=== PATIENT | female | born 1970 | race Caucasian/White ===

== ENCOUNTER 2022-04-13 19:51 | Emergency (ER) | payer BC, SELFPAY ==
[2022-04-13 19:51] VITALS: BP 169/104; PULSE 78; RESP 16; TEMP 36.5; O2SAT 99; BMI 33.6
--- NOTE | 2022-04-13 21:07 | EDS_ITS ---
HPI History of Present Illness Chief Complaint: Rash Informant: patient Onset/Context/Timing Onset: Yesterday Context: Gradual Onset Timing: Continuous Quality: Erythematous Location: Bilateral upper extremities, feet, chest, neck Worsened by: Nothing Relieved by: Nothing Narrative Narrative: Patient presents with a rash that began yesterday. Patient states it has been constant but waxing and waning. Patient states that started in both arms and both feet. Patient states she also noted on her chest and neck today. Patient denies any new soaps, shampoos, laundry detergents, fabric softeners, or foods. Patient states that it is mildly pruritic. Patient states nothing makes it worse and nothing makes it better. Patient states she also has some gastroesophageal reflux symptoms. Patient states she has been taking omeprazole for this with minimal relief. Patient admits to nausea but denies any vomiting. Patient admits to some diarrhea. PFSH PFSH Medical History no medical history no medical history Home Medications pantoprazole 40 mg tablet,delayed release 40 mg PO DAILY #10 tabs 04/13/22 [Rx Last Taken Unknown] Allergy/AdvReac Type Severity Reaction Status Date / Time ciprofloxacin [From Cipro] Allergy Angioedema Verified 04/13/22 19:53 ciprofloxacin HCl Allergy Angioedema Verified 04/13/22 19:53 [From Cipro] Surgical History (Updated 04/13/22 @ 21:[address] Félix Madrigal DO) H/O section Status post surgical removal of malignant neoplasm of skin Social History Smoking Status: Current every day smoker tobacco type: cigarettes ROS ROS ED Constitutional Constitutional ED: Reports fever(s) and subjective; Denies chills Eyes Eyes: Denies blurry vision or change in vision ENT ENT ED: Reports rhinorrhea; Denies sore throat Cardiovascular Cardiovascular: Reports chest pain; Denies palpitations Respiratory/Chest Respiratory/Chest: Denies cough or dyspnea Gastrointestinal Gastrointestinal: Reports diarrhea and nausea; Denies vomiting Genitourinary Genitourinary ED: Denies dysuria or hematuria Musculoskeletal Musculoskeletal: Denies back pain or neck pain Integumentary Reports rash; Denies abscess Neurologic Neurologic: Reports headache(s); Denies weakness Allergic/Immunologic Allergic/Immunologic ED: Denies mouth swelling or urticaria EXAM Physical Exam Const Vital Signs: 04/13/22 19:51 Temperature 97.7 F L Temperature Source Temporal Pulse Rate 78 Respiratory Rate 16 Blood Pressure 169/104 H Blood Pressure Mean 125 Pulse Ox 99 Oxygen Delivery Method Room Air Positive well nourished, well developed and obese General Appearance ED: well developed and NAD Nutritional Appearance: obese HEENT Reports moist mucous membranes Neck supple and no JVD Resp normal respiratory effort and clear to auscultation bilaterally Cardio regular rate and regular rhythm GI normal to inspection, nondistended, normoactive bowel sounds and non-tender Extremity normal to inspection Neuro oriented x3, CN's II-XII intact bilaterally and no sensory deficits noted Sensorium / Orientation: alert Motor Exam: strength 5/5 throughout Psych mental status grossly normal Skin Skin Narrative: There is a generalized papular rash over the upper extremities bilaterally, lower legs and feet bilaterally, chest, and anterior neck. There is no involvement of the mucous membranes. There are no petechia. There is no i nvolvement of the palms or soles. There is no bleeding. There are no vesicles or pustules. MDM MDM MDM Narrative Medical decision making narrative: Patient was advised that this may be a viral exanthem from a viral upper respiratory infection. Patient was instructed to use Benadryl or Zyrtec as needed for itching. Patient was given a prescription for pantoprazole to take instead of her omeprazole. Patient was instructed to follow-up with her primary care physician in 5 to 7 days. Patient understood and was agreeable with the plan. All questions were answered. Discharge Plan Triage Chief Complaint: Rash ED Provider: Félix Madrigal Dx/Rx/DC Orders Clinical Impression: Rash, GERD (gastroesophageal reflux disease) Instructions: ED GERD (Adult), ED Viral Rash, Exanthem (Child) Prescriptions: New pantoprazole 40 mg tablet,delayed release (DR/EC) 40 mg PO DAILY Qty: 10 0RF Primary Care Provider: Riley Hutchison Referrals: Riley Hutchison DO [Primary Care Provider] - 3-5 Days Disposition Disposition: Home, Self Care
[2022-04-13] MEDS: Pantoprazole Sodium 40 MG Tablet PO (21:39)
== END 2022-04-13 21:40 | disposition home or self-care (01) ==
PROVIDERS: Emergency Provider Emergency Medicine; PCP Student in an Organized Health Care Education/Training Program; Visit Provider Emergency Medicine
DX: R21 Rash and other nonspecific skin eruption (principal); K21.9 Gastro-esophageal reflux disease without esophagitis; E66.9 Obesity, unspecified; F17.210 Nicotine dependence, cigarettes, uncomplicated; Z68.33 Body mass index [BMI] 33.0-33.9, adult; Z79.899 Other long term (current) drug therapy
CPT/HCPCS: 99281; 99283

== ENCOUNTER 2023-01-13 09:00 | Outpatient (RCR) | payer OTHER, BC, SELFPAY ==
--- NOTE | 2022-10-11 11:52 | OTREVAL_ITS ---
MINAL GERMAIN, It has been my pleasure to treat SHEMAR POLANCO over the last 2 visits for right hand crush injury. Please see the progress note below for an update on the occupational therapy plan of care! Subjective: pt karena did not bring splint with her so we can add finger section to keep her from fisting at night Objective/Function: PIP flexion with FES of MF 85 and RF 90 Plan Frequency: 2-3x /Week Duration: 2 Months Visits in this POC: 36 Goals - Goals Patient Goals: Regain Mobility, Decrease Pain, Return to Work, Use Hand/Wrist/Arm Normally Again Goal:Daily scar massage when approriate: Yes Goal:ROM equal to unaffected hand: Yes Goal:Collaborative Physician/Pinch strength at least 75% of unaffected hand: Yes Goal:PIP Circumferences equal to unaffected hand: Yes Goal:Full use of affected hand in daily activities including: Yes Goal:Decrease scar hypersensitivity: Yes Anticipated Interventions Anticipated Interventions: A/AAROM/PROM, Strengthening, Edema Control, Scar Care, Triggerpoint Release, Sensory Retraining, Modalities, Orthoses, Ergonomic Education, Fine Motor Coord/Lazaro, Neuro Reeducation, Sensory Stimulation, Education re assistive Equipment, Education re Diagnosis, Caregiver Training, Home Program Please do not hesitate to contact me at [phone] by phone or if you have questions or concerns regarding this new plan of care! Sincerely, Nola Castle OTR/L, CHT
--- NOTE | 2022-10-11 11:53 | HP.OTEVAL ---
Patient's Visit Information SHEMAR POLANCO is a 52 year old F, referred to Occupational Therapy by MINAL GERMAIN, with a diagnosis of right hand crush injury. Date of Evaluation: 10/08/22 Occupational Therapist: Nola Castle, CHRISTY/BRINA Taylor - Subjective This 52 year old female was referred to OT with dx of right hand crush injury with palmar transvers laceration. right 4th, 5th Carpometacarpal volar dislocation- and right 3rd carpometacarpal dorsal dislocation with right transvers metacarpal instability 3-5th. pts DOI was 08/10/22 with sx on 08/11/22. pt is currently 8 weeks and 2 days s/p: Repair of blood vessel, percutaneous skeletal fixation of carpometacarpal dislocation with 3td joint percutaneous skeletal fixation of carpometacarpal dislocation w/ Manip 4th joint percutaneous skeletal fixation of carpometacarpal disloc w/manip 5th joint decompression of median nerve at CT. pt arrives to this CHRISTY/ERI TaylorT after receiving 6 OT sessions with Bryan HARRISON/BRINA Taylor. pt was tsf to this facility due to distance travel to [place]. pt admits she is anxious about her hand and functional use of it- she is left hand dominate and states she is trying to use her right hand with some of her daily tasks as bathing/dressing. pt states she did use it to help fold laundry yesterday. pt states soreness and stiffness limits her ability to use her hand. - Pain right hand 4 Pain Intensity Range: 2, 6 - ROM Wrist: right 25/30 left 60/70 CMC: right +10 MP: right 40 IP: right 40 Radial Abduction: right 45 Palmar Abduction: right 30 min Opposition: Kapandji opposition scale right 4 left 10 MP: Right IF 20/45 MF 20/50 RF 0/25 LF +25/10 PIP: right IF -40/80 MF -50/80 RF -55/90 LF -55/80 DIP: right IF -20/50 MF -35/50 RF -40/40 LF -30/30 ROM Comments: Right UD N RD 15. left UD 30 RD 20 - Strength Strength Comments: will test later date - Sensation Thumb: right 2.83 normal Index: right 3.61 diminished Middle: right 3.61 diminished Ring: right 4.31 diminished protective sensation Little: right 6.65 absent Sensation Comments: light touch impaired more on ulnar nerve LF distribution - Quick DASH-Disab of Arm,Shoulder& Hand Quick DASH Score: 85.0000 - Goals Goal:Daily scar massage when approriate: Yes Goal:ROM equal to unaffected hand: Yes Goal:Substance Addiction Coordinator/Pinch strength at least 75% of unaffected hand: Yes Goal:PIP Circumferences equal to unaffected hand: Yes Goal:Full use of affected hand in daily activities including: Yes Goal:Decrease scar hypersensitivity: Yes - Rehabilitation General Assessment: This 52 year old female is currently 8 weeks and 2 days from fx Repair of blood vessel, percutaneous skeletal fixation of carpometacarpal dislocation with 3td joint percutaneous skeletal fixation of carpometacarpal dislocation w/ Manip 4th joint percutaneous skeletal fixation of carpometacarpal disloc w/manip 5th joint decompression of median nerve at CT. pt arrives to this OTR/Claudia,CHT after receiving 6 OT sessions with Bryan Arreaga OTCaryn/BRINA Taylor. pt was tsf to this facility due to distance travel to [place]. pt continues to demo with limited wrist/finger and thumb ROM, pain and decreased ability to use right hand with ADLs and IADLs. pt would benefit form skilled OT services 2-3x week for 8 weeks to increase pts functional ROM and transition to strengthening when able. pt demo understanding and agrees to POC. Rehabilitation Potential: Good - Anticipated Interventions A/AAROM/PROM, Strengthening, Edema Control, Scar Care, Triggerpoint Release, Sensory Retraining, Modalities, Orthoses, Ergonomic Education, Fine Motor Coord/Lazaro, Neuro Reeducation, Sensory Stimulation, Education re assistive Equipment, Education re Diagnosis, Caregiver Training, Home Program - Visit Plan Frequency: 2-3x /Week Duration: 2 Months TEXT: Thank you for the opportunity to evaluate your patient. For Medicare and Medicare HMO plans, please review the plan of care and approve it. It will need to be FAXED BACK to us at [phone] for Medicare purposes. Please let me know if there are questions or concerns regarding this plan of care. Physician Signature: Date:
--- NOTE | 2022-10-21 10:27 | OTREVAL_ITS ---
MINAL GERMAIN, It has been my pleasure to treat SHEMAR POLANCO over the last 5 visits for right hand crush injury. Please see the progress note below for an update on the occupational therapy plan of care! Subjective: pt arrives to session 10 weeks from right crush injury with multiple trauma -. pt states she was able to carry 1/2 gallon of milk in from the car. trying to do more with it as I can tolerate. Objective/Function: - ROM. Wrist: at initial eval right 25/30 current 45/50. CMC:at initail eval right +10 current 0*. MP: right 40 same as eval. IP: at initial eval right 40 current 60*. Radial Abduction: right 45 same as eval. Palmar Abduction: right 30 min. Opposition: Kapandji opposition scale at eval right 4 current 6. inital eval. PIP: right IF -40/80 current -20/ 85. MF - 50/80 current -30/ 85. RF -55/90 current -/90. LF -55/80 current - Plan Frequency: 2-3x /Week Duration: 2 Months Visits in this POC: 36 Plan: cont with FES to increase tendon glides and improve ROM of composite fist. may use light t-putty. blocking. BTE and UBE Goals - Goals Patient Goals: Regain Mobility, Decrease Pain, Return to Work, Use Hand/Wrist/Arm Normally Again Goal:Daily scar massage when approriate: Yes Goal:ROM equal to unaffected hand: Yes Goal:Machine Rigger/Pinch strength at least 75% of unaffected hand: Yes Goal:PIP Circumferences equal to unaffected hand: Yes Goal:Full use of affected hand in daily activities including: Yes Goal:Decrease scar hypersensitivity: Yes Anticipated Interventions Anticipated Interventions: A/AAROM/PROM, Strengthening, Edema Control, Scar Care, Triggerpoint Release, Sensory Retraining, Modalities, Orthoses, Ergonomic Education, Fine Motor Coord/Lazaro, Neuro Reeducation, Sensory Stimulation, Education re assistive Equipment, Education re Diagnosis, Caregiver Training, Home Program Please do not hesitate to contact me at [phone] by phone or if you have questions or concerns regarding this new plan of care! Sincerely, Nola Castle, DOMINGAR/L, CHT
--- NOTE | 2023-01-13 09:42 | HP.OTREVAL ---
MINAL GERMAIN, It has been my pleasure to treat SHEMAR POLANCO over the last 17 visits for right hand crush injury. Please see the progress note below for an update on the occupational therapy plan of care! Subjective: Pt arrived today stated that it is what it is. Pt stated that stuff is not as easy as it used to be but is improvises. pt states she is trying her best to find ways of completing tasks but just more time consuming due to weakness and lack of sensation of tingling in fingers. Objective/Function: monofilament testing. right Thumb, IF, MF and RF testing at 2.83 of normal sensation. right LF testing at 3.61 (improved from 6.65). pt states she still hast pins and needle sensation in LF and tip of RF. (feels like it is asleep). pt demo with ulnar nerve motor nerve atrophy throughout hand- pt has claw hand deformity splint to increase functional use of non dominate right hand. Also a resting night splint to prevent contractures of PIPs. pt demo compensatory tashia. for muscle atrophy in hope nerve will recover. therapist has engaged pt in PRE of ROSY to prevent UB muscle weakness as pt is unable to use right UE at PLOF. pt has HEP and demo understanding. pt encouraged to problem solve when she is challenged with FM tasks. ( pt does this well and continue to still use non dominate hand with daily cleaning and laundry tasks ( does get her frustrated due to limitations). right wrist 55/60 initial 25/30. right patient care secretary strength 5# ( initial unable ). right lateral pinch unable. right tripod pinch unable. Kapandji opposition scale right 10 initial was 4. pt demo with right RF metacarpal collapsing due to muscle atrophy (wondering if pt does not want to wear anti claw split if pt would like more low profile sliver ring splints ( to support fingers). pt goals are to increase her grasp to increase her ind. for grooming, buttoning, and opening zip lock bags , and hold sponge /wash cloth etc. pinch to hold sugar packet to open etc. please re-eval and advise Plan Visits in this POC: C9 11/23/22-01/16/23 18 OT sessions Plan: pt returns to for further assessment : can do gym equ and BTE to pt nancy. Cont with FES to increase tendon glides and improve ROM of composite fist. may use light t-putty. blocking. BTE. use splint Goals - Goals Patient Goals: Regain Mobility, Decrease Pain, Return to Work, Use Hand/Wrist/Arm Normally Again Goal:Daily scar massage when approriate: Yes Goal:ROM equal to unaffected hand: Yes Goal:Corporate Executive Chef/Pinch strength at least 75% of unaffected hand: Yes Goal:PIP Circumferences equal to unaffected hand: Yes Goal:Full use of affected hand in daily activities including: Yes Goal:Decrease scar hypersensitivity: Yes Anticipated Interventions Anticipated Interventions: A/AAROM/PROM, Strengthening, Edema Control, Scar Care, Triggerpoint Release, Sensory Retraining, Modalities, Orthoses, Ergonomic Education, Fine Motor Coord/Lazaro, Neuro Reeducation, Sensory Stimulation, Education re assistive Equipment, Education re Diagnosis, Caregiver Training, Home Program Please do not hesitate to contact me at [phone] by phone or if you have questions or concerns regarding this new plan of care! Sincerely, Nola Castle, OTR/L, CHT
--- NOTE | 2023-04-05 08:01 | HP.OTDCSUM_ITS ---
Discharge Summary D/C Summary: It has been my pleasure to treat SHEMAR POLANCO under orders from MINAL GERMAIN, for the diagnosis of right hand crush injury for a total of 17 visit(s). Please see the following information for a summary of their discharge status. Overall Improvement % Improvement: 30 Objective Objective/Function: monofilament testing right Thumb, IF, MF and RF testing at 2.83 of normal sensation right LF testing at 3.61 (improved from 6.65) pt states she still hast pins and needle sensation in LF and tip of RF. (feels like it is asleep) pt demo with ulnar nerve motor nerve atrophy throughout hand- pt has claw hand deformity splint to increase functional use of non dominate right hand. Also a resting night splint to prevent contractures of PIPs pt demo compensatory tashia. for muscle atrophy in hope nerve will recover. therapist has engaged pt in PRE of ROSY to prevent UB muscle weakness as pt is unable to use right UE at PLOF. pt has HEP and demo understanding. pt encouraged to problem solve when she is challenged with FM tasks. ( pt does this well and continue to still use non dominate hand with daily cleaning and laundry tasks ( does get her frustrated due to limitations) right wrist 55/60 initial 25/30 right traffic superintendent strength 5# ( initial unable ) right lateral pinch unable right tripod pinch unable Kapandji opposition scale right 10 initial was 4 pt demo with right RF metacarpal collapsing due to muscle atrophy (wondering if pt does not want to wear anti claw split if pt would like more low profile sliver ring splints ( to support fingers). pt goals are to increase her grasp to increase her ind. for grooming, buttoning, and opening zip lock bags , and hold sponge /wash cloth etc. pinch to hold sugar packet to open etc. please re-eval and advise Goals Patient Goals: Regain Mobility, Decrease Pain, Return to Work and Use Hand/Wrist/Arm Normally Again Goal:Daily scar massage when approriate: Yes Goal:ROM equal to unaffected hand: Yes Goal:Semiconductor Processing Group Leader/Pinch strength at least 75% of unaffected hand: Yes Goal:PIP Circumferences equal to unaffected hand: Yes Goal:Full use of affected hand in daily activities including work: Yes Goal:Decrease scar hypersensitivity: Yes Plan Plan: pt returns to for further assessment : can do gym equ and BTE to pt nancy. Cont with FES to increase tendon glides and improve ROM of composite fist may use light t-putty blocking BTE use splint D/C Information Discharge Comments: At this time pt to follow guidelines d/c sentence: If there are questions or concerns regarding this patient's occupational therapy, please fell free to call me at [phone]. Thank you for the referral of this patient. Sincerely, Nola Castle, OTR/L, CHT
== END 2023-01-13 19:00 | disposition home or self-care (01) ==
LOC: OT 09:00
PROVIDERS: PCP Student in an Organized Health Care Education/Training Program
DX: S67.21XD Crushing injury of right hand, subsequent encounter (principal); S63.054D Dislocation of other carpometacarpal joint of right hand, subsequent encounter
CPT/HCPCS: 97035; 97110; 97140; 97168; 97530; 97760

== ENCOUNTER 2023-07-07 11:00 | Outpatient (RCR) | payer OTHER, BC, SELFPAY ==
--- NOTE | 2023-05-06 08:07 | HP.OTEVAL ---
Patient's Visit Information Visit Information Visit Information: SHEMAR POLANCO is a 53 year old F, referred to Occupational Therapy by ARIANNA BARRETO, with a diagnosis of neuropraxia of R ulnar nerve, dislocation R carpometacarpal joint,. Date of Evaluation: 05/02/23 Occupational Therapist: Nola Castle, DOMINGAR/Claudia, CHT Subjective Subjective: This 53 year old patient arrived 8 weeks 3 days post surgical intervention for decompression of ulnar nerve at wrist, external neurolysis of right ulnar nerve sensory branch of small finger, internal neurolysis of right ulnar branch to common palmar digital nerve, stabilization of 4th metacarpal with reconstruction of deep transverse metacarpal ligament, and percutaneous pinning of 1 CMC joint. Pt known to this clinic after initial crush injury on 08/10/2022 with surgery on 08/11/2022. Pt most recently had surgery on Mar 04, 2023. Pt arrives wearing soft thumb brace and MF/RF splint. Pt reports some shooting pain up the right arm. Pt carries grocery bag on right forearm but has not used right hand for heavy tasks. Pt states she continues to be limited in her ADL/IADL ability but has been able to problem-solve tasks to promote healing in her right hand. Pt is right hand dominant. Pain R doral/ulnar and thumb: Current Pain Intensity: 2 Pain Intensity Range: 5 Objective Objective/Observation: Pt tends to guard hand when out of bracing ROM Shoulder: Bilateral shoulder flex abduction WFL Wrist: R 25/50 L 35/80 MP: right -2/30 left +3 IP: right +2 left + Radial Abduction: right 30 no change left Palmar Abduction: right 44 no change left Opposition: Kapandji opposition scale Scale right hand 4 left hand 10 MP: right IF - MF -13/ RF -27/65 LF +30/56 PIP: right IF - MF-48/100 RF -48/95 LF -25/ DIP: right IF 0/60 MF -20/55 RF -6/ LF -15/ ROM Comments: Pt is able to make a tight composite fist with left hand Pt ability to make a fist with her right hand is as follows: 1/2 IF from ceron crease, 1 MF Pt unable to to perform radial adduction or palmar adduction of R thumb, some opposition noted (see Kapandji opposition scale) Pt unable to adduct digits together - noted middle digit with deviation toward ring finger Noted right RF/LF MCP collapse below MF MCP Strength Motor Vehicle Assembly Supervisor: R 0# L 51# Lateral Pinch: R unable Tripod Pinch: R unable Sensation Stereognosis: Abnormal - Right and Normal - Left Kinesthesia: Abnormal - Right and Normal - Left Proprioception: Abnormal - Right and Normal - Left Sensation Comments: Normal sensation on ceron and dorsal Right and Left hand at 2.83 No sensation in R palm Quick DASH-Disab of Arm,Shoulder& Hand Quick DASH Score: 71.6650 Goals Goal:: Pt to improve R WF by 20* in order to improve functional movement during ADL tasks. Pt to improve R WE by 10* in order to improve functional movement during ADL tasks. Pt will be able to make a composite fist with all digits touching palm by discharge to perform ADL tasks. Goal:: Pt will demo understanding of orthosis use, skin care and precaution by end of 1st session. Goal:Daily scar massage when approriate: Yes Goal:No pain with affected hand use: Yes Goal:Full use of affected hand in daily activities including work: Yes Other Goal: Pt to demo overall increased indep in ADL/IADL tasks by decreased total DASH score by 15 points by discharge. Pt to demo improved R functional perforator strength by 25# to improve ability to grasp items for ADL and IADL tasks. Rehabilitation General Assessment: Pt seen for OT eval s/p surgery for right hand nerve decompression in wrist, percutaneous pinning of right CMC joint, and 4th metacarpal stabilization of deep transverse ligament, as a result of a crush injury in 08/10/2022. Pt is limited in right digit and hand ROM, decreased sensation in right palm of hand, and pain in right hand. This is limiting the patient's ability to perform ADL/IADL tasks. Pt would benefit to from skilled OT for 1-3x for 4-6 weeks to safely return to daily tasks by decreasing sensation in hand, increasing ROM, and promoting proper healing in her right hand. Orthosis fabricated for patient to improve finger positioning and proper healing during treatment. Therapist ed. pt on POC, orthosis wear/care, and ROM exercises, pt agreeable and verbalizes understanding of OT POC. This therapy session was directly supervised and doc. approved by Nola Castle OTR/Claudia,CHT. Rehabilitation Potential: Good Anticipated Interventions Anticipated Interventions: A/AAROM/PROM, Edema Control, Scar Care, Modalities, Orthoses, Fine Motor Coord/Lazaro, Education re assistive Equipment and Education re Diagnosis Visit Plan Frequency: 1-3x/week Duration: 4-6 Weeks General Plan: Possibly a resting hand splint Progress digit and wrist ROM TEXT: Thank you for the opportunity to evaluate your patient. For Medicare and Medicare HMO plans, please review the plan of care and approve it. It will need to be FAXED BACK to us at [phone] for Medicare purposes. Please let me know if there are questions or concerns regarding this plan of care. Physician Signature: Date:
--- NOTE | 2023-09-13 11:29 | HP.OTFCE_ITS ---
Date of Eval Date of Evaluation: 09/13/23 Task Lift Floor (Occasional 1-33% of Day): patient's max weight lifted 30# Floor (Frequent 34-66% of Day): max weight 15# Floor (Constant 67-100% of Day): max weight 6.3# Floor PDL: Medium Knee (Occasional 1-33% of Day): max weight 30# Knee (Frequent 34-66% of Day): max weight 15# Knee (Constant 67-100% of Day): max weight 6.3# Knee PDL: Medium Waist (Occasional 1-33% of Day): max weight 25# Waist (Frequent 34-66% of Day): max weight 12.5# Waist (Constant 67-100% of Day): max weight 5.2# Waist PDL: Light-Medium Shoulder (Occasional 1-33% of Day): max weight 15# Shoulder (Frequent 34-66% of Day): max weight 7.5# Shoulder (Constant 67-100% of Day): max weight 3.1# Shoulder PDL: Light Overhead (Occasional 1-33% of Day): max weight 15# Overhead (Frequent 34-66% of Day): max weight 7.5# Overhead (Constant 67-100% of Day): max weight 3.1# Overhead PDL: Light Comments: Patient with increasing difficulty as weight was higher up. Most difficulty with right hand newspaper or periodical editor strength Work Activity/Posture Bending: Constant Ability (67-100% of day) Squatting: Frequent Ability (34-66% of day) Kneeling: Constant Ability (67-100% of day) Reaching out: Constant Ability (67-100% of day) Reaching up: Constant Ability (67-100% of day) Sitting: Constant Ability (67-100% of day) Walking: Constant Ability (67-100% of day) Standing: Constant Ability (67-100% of day) Comments: Patient with some increased breathing after multiple reps of squat/kneel Reference Reference: Duration Sedentary Sedentary Light Light Light Medium Medium Medium Heavy Very Heavy Heavy Occasional (0-33% of day) Frequent (34-66% of day) Constant (67-100% of day) 10 # Negligible Negligible 15 # 8 # Negligible 20 # 10# Negli. 35 # 18 # 7 # 50 # 25 # 10 # 75 # 100 # >100 # 38 # 50 # >50 # 15 # 20 # >20 # Patient Information Height: 1.6 m Weight:: 95.788 kg Hand Dominance: left Medical History Medical History Including Restrictions: Patient had 3 surgeries on left shoulder to remove basal cell carcinoma in 2020. Patient has some soreness in that shoulder since surgery. Patient had a work injury Aug 102021, right hand crushed between two tow motors. Resulting in multiple broken bones of the right hand, soft tissue injury, and nerve compression. Patient had initial surgery in right hand Jul (hospitalized for 4 days). Later on, patient had pins removed, then a second surgery in February 2023, occupational therapy after that. Then pins removed again and resumed occupational therapy. 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 Patient was seeing a mental health therapist initially after the accident and is now seeing someone once every two weeks to address the PTSD. All care so far has been covered under workers comp. 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 Patient worked 10 hour days, 4 days a week at [employer]. She was standing all day except for breaks, and using both hands and lifting all day. She participated in picking up car axles, doing break pads, etc. She was required to lift up to 50 pounds from the ground to shoulder height. She had frequent use of tools and pulling tools from overhead. Behavioral Behavioral: Patient calm and cooperative throughout evaluation. She became somewhat emotional when completing fine motor testing due to difficulty using her right hand. She reports she is still emotional about it and the accident has affected her overall mental health as well. ADLS ADLS: Patient is modified independent with all daily self care including basic activities of daily living and instrumental ADL's (driving, cooking, laundry, etc). Patient has some trouble with opening cans or more difficult two handed tasks due to lack of newspaper or periodical editor strength in the right hand. Patient lives with her son. Home set-up: Patient lives in a single level home with ramp to enter. There is a basement with about 12 steps, HR on the right. Patient has a tub shower, regular toilet, regular bed. Physical Examination Physical Examination: Patient is well appearing, able to independently ambulate around outpatient facility and to/from the car, indep with transferring to/from the chair. ROM: ROM bilateral shoulders, elbows, wrist WNL. ROM L hand WNL R hand: first digit flexion: PIP 65 DIP 55; extension WNL second digit: PIP 75, DIP 65; extension PIP -60, DIP -5 third digit PIP: 75, DIP 45, extension PIP -50, DIP -2 fourth digit PIP: 70, DIP 50; extension WNL MCP flexion digits 1-4 75 deg, hyperextension in digits 2-4 5-10 deg Thumb: decreased flexion/extension control (muscle atrophy in webspace), IP flexion 80, extension WNL Strength: Left UE: shoulder flexion 25.3/ extension 21.8 elbow flexion 19.2/ extension 22.8 wrist flexion 20.3/ extension 20.1 hip flexion 31.1 knee flexion 26.4/ extension 28.4 R UE: shoulder flexion 23.8/ extension 28.6 elbow flexion 17.4/ extension 23.1 wrist flexion 13/ extension 11.4 Hip flexion 27.9 knee flexion 33/ extension 26.7 Right Audio Visual Manager Strength Average: 4.00 Right Audio Visual Manager Strength Percentile: <1 percentile Left Audio Visual Manager Strength Average: 51.00 Left Audio Visual Manager Strength Percentile: 12th percentile Right Lateral Pinch Average: 0 Right Lateral Pinch Percentile: <1 percentile Left Lateral Pinch Average: 12.66 Left Lateral Pinch Percentile: between 50th - 75th percentile Right Tripod Pinch Average: 0 Right Tripod Pinch Percentile: < 1 percentile Left Tripod Pinch Average: 12.66 Left Tripod Pinch Percentile: between 50th and 75th percentile Comments: newspaper or periodical editor measurements completed with arm flexed to her side Sensation: monofilament testing completed on R hand, resulting in within normal sensation at 3.84 monofilament touch test Fine Motor: Patient is left hand dominant. R hand is the affected hand, she has decreased ROM, strength, and sensation. She is able to pickle water pump operator varying sized objects with R hand but nothing that is heavy. She is able to achieve a pointer/thumb tip to tip pinch to pickle water pump operator a paper clip and a pen. She has decreased hand extension limiting the large objects she can grasp or using it as a functional second assist hand. 9 hole peg test: L hand (using tripod pinch) 18.3 seconds - between 75h - 90th percentile R hand (using index and thumb tip to tip pinch) 52.2 seconds - <1 percentile unable to translate with R hand, within normal limits for translation in L hand Balance: no concerns, WNL Non Material Handling Activities Bending: Patient was able to bend to the ground x 10 slow and 10x fast without loss of balance or difficulty. Patient demonstrating good form with bending at the knees. Squatting: Able to squat/recover multiple reps without loss of balance but using external support. Kneeling: Able to kneel functionally bilaterally multiple reps while stablizing on external surface. Reaching out/up: Patient able to reach up and out 10x slow and then 10x fast without any difficulty or pain. Walking: Independent [facility] ambulation around rehab facility, walking for ~15 minutes without need for rest break or assistance Standing: independent with prolonged standing, no difficulty or reported pain Sitting: independent with prolonged sitting, no difficulty or reported pain Climbing Stairs: independent ascending and descending stairs with use of one HR on the descent for stability Dynamic Occasional Lifting Capacity Floor Lift: Patient with a max lift of 30#, demonstrating good form and balance Knee Lift: Patient with a max lift of 30#, demonstrating good form and balance. Waist Lift: Patient with a max lift of 25# Shoulder Lift: max lift 15# Overhead Lift: max lift 15# Carrying: max carry of 15# Comments: most difficulty with strength of grasp in right hand. Patient demonstrating good form overall with lower body lifting dynamics.
--- NOTE | 2023-09-13 11:30 | HP.OTFCE.D ---
FCE D/C Summary Discharge text: SHEMAR Low SHERRI was seen for a one time visit for an FCE on 09/13/23 and is discharged.
== END 2023-07-07 19:00 | disposition home or self-care (01) ==
LOC: OT 11:00
PROVIDERS: PCP Student in an Organized Health Care Education/Training Program
DX: S67.21XD Crushing injury of right hand, subsequent encounter (principal); S66.31 Strain of extensor muscle, fascia and tendon of other and unspecified finger at wrist and hand level; S64.01XD Injury of ulnar nerve at wrist and hand level of right arm, subsequent encounter; S64.11XD Injury of median nerve at wrist and hand level of right arm, subsequent encounter; S63.04 Subluxation and dislocation of carpometacarpal joint of thumb; M20.099 Other deformity of finger(s), unspecified finger(s); Z98.890 Other specified postprocedural states; S54.01XD Injury of ulnar nerve at forearm level, right arm, subsequent encounter
CPT/HCPCS: 97110; 97140; 97166; 97530; 97750; 97760

== ENCOUNTER 2023-09-13 08:57 | Outpatient (RCR) | payer OTHER, SELFPAY | END 2023-09-13 19:00 | disposition home or self-care (01) | LOC: OT 08:57 | PROVIDERS: PCP Student in an Organized Health Care Education/Training Program | DX: S54.01XD Injury of ulnar nerve at forearm level, right arm, subsequent encounter (principal); S63.054D Dislocation of other carpometacarpal joint of right hand, subsequent encounter; S67.21XD Crushing injury of right hand, subsequent encounter ==